=== PATIENT | female | born 1995 | race Caucasian/White ===

== ENCOUNTER 2016-12-19 23:44 | Emergency (ER) | payer OTHER ==
[2016-12-20 01:03] LABS: BASOPHIL % 0.3 % (0-2); PLATELET COUNT 219 x10^3mcL (130-400); RED CELL DISTRIBUTION WIDTH 13.9 % (11.5-14.5)
[2016-12-20 01:05] LABS: CARBON DIOXIDE 24.9 mmol/L (21-32); CHLORIDE SERUM 104 mmol/L (98-107); CREATININE SERUM 0.7 mg/dL (0.6-1.0); GFR1 > 60 mL/min; GLUCOSE SERUM 136 mg/dL (74-106); SODIUM SERUM 137 mmol/L (136-145)
[2016-12-20 01:10] LABS: ALKALINE PHOSPHATASE 159 U/L (46-116); ALT/SGPT 12 U/L (14-59); AST/SGOT 10 U/L (15-37); BILIRUBIN TOTAL 0.54 mg/dL (0.20-1.00); TOTAL PROTEIN, SERUM 6.9 g/dL (6.4-8.2)
[2016-12-20 01:28] LABS: ALBUMIN 2.3 g/dL (3.4-5.0)
[2016-12-20 01:40] VITALS: BP 131/92
== END 2016-12-20 01:40 | disposition short-term general hospital (02) ==
LOC: ED 23:44
PROVIDERS: Emergency Medicine
DX: O24.913 Unspecified diabetes mellitus in pregnancy, third trimester (principal); Z79.4 Long term (current) use of insulin; Z3A.36 36 weeks gestation of pregnancy
CPT/HCPCS: 36415; 82962; Q0092